=== PATIENT | male | born 1965 | race Caucasian/White ===

== ENCOUNTER 2016-07-23 12:29 | Day surgery (SDC) | payer OTHER, BC ==
[2016-07-22 14:00] LABS: BASOPHILS 0.1 %; BASOPHILS ABSOLUTE 0.01 10/3/uL (0.0-0.16); EOSINOPHILS 0.4 %; EOSINOPHILS ABSOLUTE 0.04 10/3/uL (0.0-0.53); HEMATOCRIT 38.8 % (40.0-51.0); HEMOGLOBIN 13.3 g/dL (13.6-17.8); IMMATURE GRANULOCYTES 0.2 %; IMMATURE GRANULOCYTES ABSOLUTE 0.02 10/3/uL (0.0-0.11); LYMPHOCYTES 16.7 %; LYMPHOCYTES ABSOLUTE 1.84 10/3/uL (0.67-4.30); MEAN CORPUS HGB CONC 34.3 g/dL (32.0-36.0); MEAN CORPUSCULAR HEMOGLOB 31.6 pg (26.0-34.0); MEAN CORPUSCULAR VOLUME 92.2 fL (80-100); MEAN PLATELET VOLUME 11.1 fL (9.2-13.0); MONOCYTES 11.6 %; MONOCYTES ABSOLUTE 1.28 10/3/uL (0.21-1.20); NEUTROPHILS ABSOLUTE 7.85 10/3/uL (2.02-8.40); PLATELET COUNT 183 10/3/uL (150-400); RBC DISTRIBUTION WIDTH 13.6 % (12.0-16.0); RED CELL COUNT 4.21 10/6/uL (4.7-6.1)
[2016-07-22 14:01] LABS: MANUAL DIFF NO %
[2016-07-22 14:22] LABS: BUN (BLOOD UREA NITROGEN) 16 MG/DL (6-23); CALCIUM, SERUM 8.6 MG/DL (8.5-10.4); CHLORIDE, SERUM 107 MMOL/L (96-112); CO2 (CARBON DIOXIDE) 25 MMOL/L (24-34); CREATININE 1.81 MG/DL (0.70-1.30); GFR AFRICAN AMERICAN 49 ML/MIN (>=60); GFR NON AFRICAN AMERICAN 42 ML/MIN (>=60); GLUCOSE, SERUM 91 MG/DL (60-99); POTASSIUM, SERUM 3.4 MMOL/L (3.5-5.3); SODIUM, SERUM 142 MMOL/L (135-148)
[2016-07-22 14:33] LABS: ASCORBIC ACID (UR NOT ORDER) NEG (NEG); BILIRUBIN, URINE NEGATIVE (NEG); KETONE, URINE NEGATIVE (NEG); LEUKOCYTE ESTERASE(NOT OR NEG (NEG); WBC (NOT ORDERED) (RFLEX) 2 (0-5)
--- NOTE | ~2016-07-23 | OP ---
Record Of Operation [facility] [address] [place]. [address] NAME: ÁLVARO REDMAN : 65 STATUS : [facility]#: [id number] AGE: 51 ADM/REG DATE : 07/23/16 MR#: [id number] REPORT SERV DATE: 07/24/16 DICTATED BY: BOBBY PUGA DATE: 07/23/16 REPORT STATUS : Draft TRANSCRIBED BY: MODL DATE: 07/23/16 DATE OF PROCEDURE: 07/23/2016 PREOPERATIVE DIAGNOSES: Right ureteral and renal stones. POSTOPERATIVE DIAGNOSIS: Right ureteral and renal stones. PROCEDURE: Cystoscopy, right retrograde pyelogram, right rigid and flexible ureteropyeloscopy, laser ablation of stones in the kidney, placement of right ureteral stent, instillation of bladder medications. SURGEON: Bobby Puga M.D. ANESTHESIA: General. SPECIMENS: None. ESTIMATED BLOOD LOSS: Less than 50 mL. COMPLICATIONS: None. DRAINS: A 6 variable length double-J contour ureteral stent without a string. DISPOSITION: Extubated to recovery room. HISTORY: This is a 51-year-old gentleman, who presented to my office yesterday with several mid-ureteral stones. The largest of these was 6 mm in size. He was having intractable pain. He also has multiple right renal stones. He presents today for the above-stated procedure. The patient states he passed several tiny stones through the night. He continues to have pain on the right side. PROCEDURE IN DETAIL: After consent was obtained, the patient was taken to the operating room and placed on the operative table in a supine position. General anesthetic was induced. The patient was then placed in dorsal lithotomy position. His perineum was prepped and draped in the usual sterile fashion. Examination under anesthesia reveals normal external genitalia. Cystourethroscopy was performed with a 30 and 70-degree lens. The patient had a small caliber urethra but it did admit the 22-Sami sheath. There was no evidence of any tumor stones or foreign body seen in the bladder. He did have clear efflux from the left ureteral orifice. A right retrograde pyelogram was performed. This showed normal caliber ureter up to the mid ureter and then hydroureteronephrosis behind it. A wire was easily passed up into the kidney. We then used the ureteral dilating balloon to dilate the ureteral orifice. Dilating balloon was removed. The patient's bladder was drained. Scope and sheath were removed. The safety wire was clamped to the drapes. Rigid ureteroscope was then placed and advanced up to the proximal ureter. We did not visualize the stone. The rigid ureteroscope was backed down the ureter. We saw no stones or other significant abnormalities. The rigid ureteroscope was removed. With all the manipulation, the patient Record Of [address] [place]. [address] NAME: ÁLVARO REDMNA : 65 STATUS : [facility] PAT#: [id number] AGE: 51 ADM/REG DATE : 07/23/16 MR#: [id number] REPORT SERV DATE: 07/24/16 DICTATED BY: BOBBY PUGA DATE: 07/23/16 REPORT STATUS : Draft TRANSCRIBED BY: BAL DATE: 07/23/16 has started having oozing at the bladder neck. The Ghulam catheter was used to pass a second wire into the kidney. The safety wire was once again clamped to the drapes. The 12, 14, 36 cm ureteral access sheath was passed over the working wire into the proximal ureter. The inner core was removed. There was light hematuria after the inner core was removed. The flexible ureteroscope was passed over the working wire into the kidney, and the working wire was removed. There was hematuria in the kidney. Retrograde pyelogram was performed, and all calices were evaluated. The patient did have some clot in the lower pole of calices. The 6 mm ureteral stone had washed up into the renal pelvis. There was also numerous calyceal stones noted. A laser was used to break up all the stones into small pieces. This was made more difficult because the patient bled easily and already had clots in his kidney. Since this was an emergent case, he was unable to stop his aspirin or any of his vitamins or herbal supplements. We had to stop several times simply to irrigate out the kidney so that we had visualization. Once all the stones were broken up into small fragments, the laser was removed, and all the calices were flushed to make sure that the small stone fragments were mobile. There were no stone fragments remaining that were larger than 1 mm. We then evaluated the ureter as we backed down to the mid-ureter. There were no ureteral abnormalities noted. A retrograde pyelogram was performed at this base showing an intact collecting system. We then continued to back down the ureter. The ureter though it was intact appeared to be quite irritated the further we backed down the ureter. It appeared that the ureteral caliber was quite small and passing multiple equipment up and down the ureter had left it quite irritated. The decision was made at that time to take the string off the stent and allow the ureter more time with the stent in place to heal. A final retrograde pyelogram was taken with the scope in the most distal portion of the ureter. This did show that the collecting system was intact. The safety wire was backed through the cystoscope. The stent was placed with a good curl seen in the kidney and in the bladder. It was seen to be draining at the end of the case. The bladder was drained. About 20 mL of 1% lidocaine plain were passed into the bladder, and the scope and sheath were removed. He was awakened from his anesthetic, extubated, and taken to recovery room in good condition. Plan will be to have him force fluids to keep his urine clear and expect blood in his urine. He may use a heating pad, AZO-Standard in addition to his pain management medications for his stent discomfort. He is to follow up in two to three weeks for KUB and cysto stent removal. JESSI/BAL Bobby Puga M.D. / [id number] CC: Vadim Galvez M.D.
[~2016-07-23 12:29] MED LIST: ALLEGRA PO; AMB10 PO; AMITIZA24 PO; ASAB PO; AVAP150 PO; AVINZA30 PO; AZITHROMYCIN PO; BEELITH PO; BENTYL20 PO; CIALIS5 MG PO; COLCRYS0.6 MG PO; CYMBALTA60 PO; DIOVAN HC1 PO; DURA25 TOP; ENDOCET1 TAB PO; FISH OIL1200 MG PO; FLOMAX4 PO; FLONASE NAS; GLUCPH PO; HUMALOGPEN SC; KAPIDEX60 MG PO; LANTUS SC; LANTUSCART SC; LEVEMIR SC; LINZESS 145 M145 MCG PO; LORT7 PO; LORTAB10 PO; LOVAZA1 GM PO; METHOC500B PO; MIGRAINE RELIEF; MULTIPLE VIT PO; NEXIUM40 PO; NORV10 PO; NORV5 PO; NOVOLOG SC; PLAQ200B PO; PRAV10 PO; PRILOSEC40 MG PO; REG5 PO; REQUIP5 PO; TOPAMAX100 PO; VITAMIN D1000 UNI1 PO; VOLTAREN1 % TOP; WELLSR150 PO; Z300 PO; ZETIA PO; ZYRTEC ALLGY10 MG PO; [UNRECOGNIZED DRUG - CODE]
[2016-11-24] MEDS ORDERED: ZOFRAN4 PO (16:21)
[2016-11-24] MEDS ORDERED: FLOMAX4 PO (16:22)
[2016-11-24] MEDS ORDERED: ENDOCET1 TAB PO (16:23)
[2016-11-24] MEDS ORDERED: Z300 PO (16:23)
[2016-11-24] MEDS ORDERED: PLAQ200B PO (16:23)
[2016-11-24] MEDS ORDERED: CYMBALTA60 PO (16:24)
[2016-11-24] MEDS ORDERED: DURA25 TOP (16:24)
[2016-11-24] MEDS ORDERED: COLCH6 PO (16:25)
[2016-11-24] MEDS ORDERED: METHOC500B PO (16:25)
[2016-11-24] MEDS ORDERED: TOPAMAX100 PO (16:25)
[2016-11-24] MEDS ORDERED: LINZESS 145 M145 MCG PO (16:26)
[2016-11-24] MEDS ORDERED: BENTYL20 PO (16:26)
[2016-11-24] MEDS ORDERED: REQUIP5 PO (16:26)
[2016-11-24] MEDS ORDERED: PRILOSEC40 MG PO (16:27)
[2016-11-24] MEDS ORDERED: NORV5 PO (16:27)
[2016-11-24] MEDS ORDERED: ZYRTEC ALLGY10 MG PO (16:28)
[2016-11-24] MEDS ORDERED: FLONASE NAS (16:28)
[2016-11-24] MEDS ORDERED: REG5 PO (16:29)
[2016-11-24] MEDS ORDERED: HUMALOGPEN SC (16:29)
[2016-11-24] MEDS ORDERED: LANTUSCART SC (16:29)
[2016-11-24] MEDS ORDERED: MAGNESIUM PO (16:30)
[2016-11-24] MEDS ORDERED: AMB10 PO (16:30)
[2016-11-24] MEDS ORDERED: ASAB PO (16:30)
[2016-11-24] MEDS ORDERED: [UNRECOGNIZED DRUG - OTHER] PO (16:30)
[2016-11-24] MEDS ORDERED: MULTIVIT/MIN PO (16:30)
[2016-11-24] MEDS ORDERED: FISH OIL1200 MG PO (16:31)
== END 2016-07-23 20:49 | disposition home or self-care (01) ==
LOC: SDC 12:29
PROVIDERS: Urology
PROC: 0T768DZ Dilation of Right Ureter with Intraluminal Device, Via Natural or Artificial Opening Endoscopic (ICD-10-PCS; 2016-07-23)
PROC: 0TF68ZZ Fragmentation in Right Ureter, Via Natural or Artificial Opening Endoscopic (ICD-10-PCS; 2016-07-23)
PROC: 0TF38ZZ Fragmentation in Right Kidney Pelvis, Via Natural or Artificial Opening Endoscopic (ICD-10-PCS; principal; 2016-07-23 14:00)
DX: N20.2 Calculus of kidney with calculus of ureter (principal); I10 Essential (primary) hypertension; G47.33 Obstructive sleep apnea (adult) (pediatric); D86.9 Sarcoidosis, unspecified; K21.9 Gastro-esophageal reflux disease without esophagitis; E11.9 Type 2 diabetes mellitus without complications; I63.9 Cerebral infarction, unspecified
CPT/HCPCS: 74420; 80048; 81001; 82962; 85025; 93005; A9270-GY; C1726; C1758; C1769; C1892; C1894; C2617; J2250; J2710; J3010; Q9967